=== PATIENT | female | born 1960 | race Caucasian/White ===

== ENCOUNTER 2020-10-02 20:49 | Emergency (ER) | payer MEDICAID, OTHER ==
[2020-10-02] MEDS ORDERED: HYDROmorphone 1 MG/ML Syringe IVPUSH ONE (21:58)
--- NOTE | 2020-10-02 22:34 | CR ---
PROCEDURE INFORMATION: Exam: XR Left Foot Exam date and time: 10/02/2020 9:29 PM Age: 60 years old Clinical indication: Other: Jumped out of tree/pain; Additional info: Left injury TECHNIQUE: Imaging protocol: XR Left foot. Views: 1 or 2 views. COMPARISON: No relevant prior studies available. FINDINGS: Bones/joints: There is a fracture of the calcaneus present. No other fractures or dislocations. Soft tissues: Overlying soft tissue swelling is present. IMPRESSION: 1. There is a fracture of the calcaneus present. 2. Overlying soft tissue swelling is present. 3. No other fractures or dislocations.
[2020-10-02] MEDS ORDERED: Ketorolac 30 MG/ML SDV IVPUSH ONE (22:38)
--- NOTE | 2020-10-02 23:45 | EDM.PDOC ---
ED HPI GENERAL MEDICAL PROBLEM - General Chief Complaint: Lower Extremity Injury/Pain Stated Complaint: POSSIBLE BROKEN FOOT Time Seen by Provider: 10/02/20 21:29 Source of Information: Reports: Patient, RN History Limitations: Reports: No Limitations - History of Present Illness INITIAL COMMENTS - FREE TEXT/NARRATIVE: 40-year-old female who comes in for an evaluation of a left foot injury that happened about 40 minutes before ER visit. Patient reports jumping off 5 foot from a tree and landing "wrong". Patient reports immediate pain and inability to ambulate on the left ankle and foot. Neurovascular status intact. Left Foot Pain Score (Numeric/FACES): 8 - Related Data Allergies Allergy/AdvReac Type Severity Reaction Status Date / Time acetaminophen [From Percocet] Allergy Nausea Verified 10/02/20 21:25 duloxetine [From Cymbalta] Allergy Cannot Verified 10/02/20 21:25 Remember hydrocodone Allergy Nausea and Verified 10/02/20 21:25 Vomiting oxycodone [From Percocet] Allergy Nausea Verified 10/02/20 21:25 Penicillins Allergy Itching Verified 10/02/20 21:25 tramadol Allergy Itching Verified 10/02/20 21:25 vancomycin Allergy Shortness Verified 10/02/20 21:25 of Breath Home Meds: Home Meds Gabapentin [Neurontin] 300 mg PO BID 02/12/18 [History] HYDROcodone/Ibuprofen [Hydrocodone-Ibuprofen 7.5-200] 7.5 - 200 mg PO DAILY PRN 02/12/18 [History] carisoprodoL [Soma] 350 mg PO QID PRN 02/12/18 [History] Past Medical History Cardiovascular History: Reports: High Cholesterol Gastrointestinal History: Reports: Inflammatory Bowel Disease Musculoskeletal History: Reports: Fibromyalgia - Past Surgical History Musculoskeletal Surgical History: Reports: Nerve Relocation, Other (See Below) Other Musculoskeletal Surgeries/Procedures:: neck fusion Social & Family History - Tobacco Use Tobacco Use Status *Q: Former Tobacco User Used Tobacco, but Quit: Yes Month/Year Tobacco Last Used: 03/12/00 - Caffeine Use Caffeine Use: Reports: Coffee, Energy Drinks, Tea - Alcohol Use Date of Last Drink: 10/02/20 - Recreational Drug Use Recreational Drug Use: No Review of Systems - Review of Systems Review Of Systems: Comprehensive ROS is negative, except as noted in HPI. ED EXAM, GENERAL - Physical Exam Exam: See Below Exam Limited By: No Limitations General Appearance: Alert, WD/WN, Moderate Distress Respiratory/Chest: No Respiratory Distress, Lungs Clear, Normal Breath Sounds, No Accessory Muscle Use, Chest Non-Tender Cardiovascular: Normal Peripheral Pulses, Regular Rate, Rhythm, No Edema, No Gallop, No JVD, No Murmur, No Rub Peripheral Pulses: 3+: Posterior Tibial (L), Dorsalis Pedis (L) Extremities: Joint Swelling (moderater swelling around the lateral malleolus.), Leg Pain, Limited Range of Motion (due to pain with on the lrft heel) Neurological: Alert, Oriented Psychiatric: Anxious Skin Exam: Intact, Ecchymosis (in the lateral side of the left ankle.) Lymphatic: No Adenopathy Course - Vital Signs Last Recorded V/S: Last Vital Signs Temp 97.6 F 10/02/20 21:12 Pulse 78 10/02/20 21:12 Resp 16 10/02/20 21:12 BP 113/71 10/02/20 21:12 Pulse Ox 96 10/02/20 21:12 - Orders/Labs/Meds Meds: Medications Discontinued Medications Generic Name Dose Route Start Last Admin Trade Name Freq PRN Reason Stop Dose Admin Hydromorphone HCl 1 mg 10/02/20 21:58 10/02/20 22:05 Hydromorphone 1 Mg/Ml Syringe IVPUSH 10/02/20 21:59 1 mg ONETIME ONE Administration Ketorolac Tromethamine 30 mg 10/02/20 22:38 10/02/20 22:43 Ketorolac 30 Mg/Ml Sdv IVPUSH 10/02/20 22:39 30 mg ONETIME ONE Administration - Re-Assessments/Exams Free Text/Narrative Re-Assessment/Exam: Reviewed exam findings and x-ray results with patient. Ice applied. Dilaudid 1 mg and Toradol 30 mg administered IV with pain relief. Long posterior splint applied and patient tolerated procedure well. Consulted with Dr. Charles Suárez at [facility] and he recommended splinting, crutches and follow-up with Ortho outpatient. Patient in agreement to plan. Encourage rice. Tylenol and ibuprofen every 6 hours as needed for pain. Departure - Departure Time of Disposition: 23:41 Disposition: Home, Self-Care 01 Condition: Fair Clinical Impression: Calcaneus fracture, left Qualifiers: Encounter type: initial encounter Calcaneus location: unspecified portion of calcaneus Fracture type: closed Fracture alignment: nondisplaced Qualified Code(s): S92.002A - Unspecified fracture of left calcaneus, initial encounter for closed fracture - Discharge Information Instructions: Crutch Use, Adult, [id number], Tarsal Fracture Forms: ED Department Discharge Additional Instructions: Encourage RICE. Tylenol and ibuprofen every 6 hours as needed for pain. Follow-up with PCP in clinic for Ortho referral. Sepsis Event Note (ED) - Evaluation Sepsis Screening Result: No Definite Risk - Focused Exam Vital Signs: Vital Signs Temp Pulse Resp BP Pulse Ox 10/02/20 21:12 97.6 F 78 16 113/71 96
== END 2020-10-02 23:50 | disposition home or self-care (01) ==
LOC: DL.ED 20:49
DX: S92.002A Unspecified fracture of left calcaneus, initial encounter for closed fracture (principal); Z87.891 Personal history of nicotine dependence; Z88.1 Allergy status to other antibiotic agents; Z88.0 Allergy status to penicillin; Z88.5 Allergy status to narcotic agent; Z88.6 Allergy status to analgesic agent; Z88.8 Allergy status to other drugs, medicaments and biological substances; W17.89XA Other fall from one level to another, initial encounter
CPT/HCPCS: 29505; 73620; 96374; 96375; 99283; 99284; J1170; J1885